=== PATIENT | male | born 1960 | race Two or more races ===

== ENCOUNTER 2018-05-26 09:16 | Outpatient (CLI) | payer OTHER ==
[~2018-05-26 09:16] MED LIST: KETO10TA2 PO
== END 2018-05-26 10:16 | disposition home or self-care (01) ==
LOC: NUCLEAR 09:16
DX: I87.8 Other specified disorders of veins (principal); R60.0 Localized edema

== ENCOUNTER 2018-05-29 10:14 | Outpatient (CLI) | payer OTHER | END 2018-05-29 10:26 | disposition home or self-care (01) | LOC: MRI 10:14 | DX: M25.572 Pain in left ankle and joints of left foot (principal) | CPT/HCPCS: 73721 ==